=== PATIENT | male | born 1980 | race American Indian/Alaskan Native ===

== ENCOUNTER 2020-06-21 22:48 | Emergency (ER) | payer BC ==
[2020-06-21] MEDS ORDERED: levETIRAcetam 500 MG Tab ONE (23:00)
--- NOTE | 2020-06-23 11:22 | ER ---
DATE OF SERVICE: 06/21/2020 HISTORY OF PRESENT ILLNESS: A 40-year-old male who comes in with a friend who is a cement gun operator with concerns about episodes of weakness, dizziness, and episodes of passing out. This first started almost a year ago. He states that he was working at [employer] and he just felt different 1 day and he started having issues with being forgetful and having trouble doing his job. He ended up losing that job. He has been evaluated multiple times for the symptoms initially in [place] and more recently, multiple times in [facility], in fact he has been seen 3 times there in the last week in the emergency room. He has had workups on his heart that include an echocardiogram, EKG, stress test, and heart monitors. He tells me that he has had scans of his head and multiple lab tests done. They have not been able to find a cause of his symptoms. The patient states that lately, it has gotten worse. He is a single dad and he does get help from his parents, but he will have these episodes where he gets extremely tired and it is like he is on the verge of passing out or he does pass out and afterwards, he will be very sleepy and then he will have episodes where he feels clear- headed and feels almost normal. The patient is not having any problems with pain when these episodes happen. He denies any chest pain or trouble breathing, but he states he does have some visual changes at times and he is here for an additional opinion. PAST MEDICAL HISTORY: Includes: 1. Hypertension. 2. Type 2 diabetes. MEDICATIONS: The patient takes 2 different blood pressure medications and he was recently started on a blood pressure medicine. OBJECTIVE: GENERAL APPEARANCE: The patient is awake and alert. He is pleasant and talkative and is quite thorough with his history. VITAL SIGNS: Reveals blood pressure is in the 150s over 100 range. EYES: Pupils equal, round, and reactive to light. EOMs are intact without strabismus, nystagmus, or ptosis. HEAD: Normocephalic. EARS: TMs are normal. THROAT: Nares are patent. Oral mucous membranes moist. Tonsils not enlarged or injected. Pharynx not inflamed. NECK: Supple. LUNGS: Clear. CARDIAC: Heart sounds distinct. S1, S2 present. Regular rate. No murmurs. I do not hear any carotid bruits today. ABDOMEN: Soft, nontender. Bowel sounds are present. SKIN: Warm and dry. EXTREMITIES: There is no lower extremity edema noted. INITIAL WORKUP: Orthostatic blood pressures were to be attempted while the nurse was checking the patient's blood pressure in the lying down position. He developed an episode where he became almost totally unresponsive. His head was back. He was turning his head slowly from side to side. His breathing was normal. His pulse was normal. The patient did respond verbally, but was not able to focus. This lasted for 3-4 minutes, after which the patient basically slept for a few minutes. Then, he started to once again wake up, after which he became clear-headed and was acting normal. To me, this is consistent with a partial or absence seizure. There were no tremors or thrashing of the body. He would just slowly move his head from side to side while not being able to focus. LABORATORY DATA: Labs today include a CBC which shows a slightly elevated neutrophil count. Hemoglobin and WBC are normal. CMP are unremarkable. Blood sugar is 221, nonfasting. Magnesium is normal, and a TSH is normal. EKG was obtained and is also normal, showing a normal sinus rhythm. DIAGNOSIS: Partial or absence seizures. TREATMENT PLAN: I will start the patient on Keppra 500 mg b.i.d. He was given his first dose here in the emergency room. The patient is going to need further evaluation that includes a neurology consult. We will make arrangements to do this through [place]. I will be working there on . The patient will come back and see me and further arrangements will be made at that time. The patient is not to drive. He is here with his friend who will take him home, and I will give him a script for Keppra, so he can be on it for 8 days. This will be a good trial to see how much it is helping him. I strongly feel that this could have been the problem all along, but regardless, further evaluation with a neurology consult will be needed soon. CRS/MODL /[id number] VICENTE
== END 2020-06-22 00:20 | disposition home or self-care (01) ==
LOC: LB.ED 22:48
DX: R53.1 Weakness (principal); R42 Dizziness and giddiness; I10 Essential (primary) hypertension; E11.9 Type 2 diabetes mellitus without complications
CPT/HCPCS: 36415; 80053; 83735; 84443; 85025; 93005; 99285-25; A9270-GY

== ENCOUNTER 2020-06-26 22:59 | Observation (INO) | payer BC, MEDICAID, OTHER ==
[2020-06-27] MEDS ORDERED: Sodium Chloride 0.9% 10 ML Syringe FLUSH PRN (00:58)
[2020-06-27] MEDS ORDERED: Sodium Chloride 0.9% 1,000 ML IV ONE (00:59)
[2020-06-27] MEDS ORDERED: Glucagon,Human Recombinant 1 MG Vial IM PRN (01:24)
[2020-06-27] MEDS ORDERED: 50% Dextrose in Water 50 ML Syringe IVPUSH PRN (01:24)
--- NOTE | 2020-06-27 03:15 | HP ---
REASON FOR EMERGENCY ROOM VISIT: Weakness. HISTORY: This 40-year-old man was brought to the emergency room by his parents because of extreme weakness. He has a relatively complicated history, particularly over the past year. For the past 5 days, he has made 4 visits to providers in clinics and hospitals with a constellation of symptoms including episodes of impending doom, which seem to wax and wane along with feelings of panic. He has episodes of extreme weakness where it is hard for him even to walk across the room. He states he can only walk approximately 5 minutes. He has had coughing episodes and some episodes of chest pain and complains of a great deal of stomach gas. He has been coughing and has not had any fever, but he does get chills. He had an episode of chest pain this evening that was also accompanying his episode of extreme weakness. He is a type 2 diabetic who was diagnosed 3 years ago. His H1C's have tended to run between 6 and 9. He had been managed on metformin, but because of GI intolerance, had to be switched over to insulin approximately 4 days ago. His history dates back approximately a year when he had moved to the area and was working on the [employer]. He has been under a great deal of pressure as he is a single parent of 3 children. He states that while he was working for [employer], he had episodes where he was feeling very clumsy and dizzy and forgetful, and interspersed with these episodes he would have times when he had a difficult time reading and could not stand. Because of this he eventually lost his job approximately a month later due to safety concerns. In August of last year he had a fairly extensive neurologic workup in [place]. This included a CT scan, an MRI, and a workup for multiple sclerosis under the bio- neurologist in [place]. All of this was negative. 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 He states that he was quite satisfied with his job and enjoys it a great deal. Over the course of the summer and this fall, he has had periods where he feels like he is "in a fog," these last from a few hours up to weeks at a time. He has had questionable syncopal episodes over the past few months as well. Since his diabetes was diagnosed, it sounds that his blood sugars have been varied quite wildly, ranging between 160 and 300, but he has never really had blood sugars in the normal range. He states that when his blood sugar gets below 160, he has foggy-type symptoms and when he gets over 300, he gets symptoms that sound more consistent with hypoglycemia. One month ago, he was seen with episodes of pleuritic chest pain and he was placed on antibiotics for this. Those symptoms lasted about 2 weeks and resolved. He has been worked up in the past for chest pain and this has included echocardiograms, EKGs, a stress test, and heart monitors and these have all been negative according to the patient. Over the past 5 days, he has had more sleepiness and tiredness and more profound weakness. He did have an episode of chest pain tonight. This evening he was so weak he felt like he could barely move his arms or legs. He has had coughing as mentioned above and maybe some chills, but no fever. He denies any chest pain at this time. He has not had any vomiting or diarrhea. He denies any urinary symptoms. He was seen here on 06/22/2020 by JAROD Cortés, who felt that he might have been experiencing absence seizures. He was started on Keppra and arrangements were seen for him to follow up with a neurologist. Subsequent to this, his Keppra was discontinued. His primary care provider is Dr. Yates in [place] and the patient states he is very pleased with his care so far. MEDICATIONS: Reviewed. Please see electronic medical record. FAMILY HISTORY: He does have a history of coronary artery disease in a brother who was 40 years old when he had a myocardial infarction. REVIEW OF SYSTEMS: Pertinent positives and negatives as listed in the HPI. ALLERGIES: NONE TO MEDICATIONS. PHYSICAL EXAMINATION: GENERAL: At this time, he is in the emergency department. He is alert and pleasant, does not appear to be in any acute distress. VITAL SIGNS: He is afebrile, heart rate is 71, blood pressure 147/91, respirations 18, O2 sats 96%. HEENT: Head is normocephalic. Pupils are round and equal and react equally to light. There is no scleral icterus or conjunctivitis. Oropharynx is normal. NECK: Supple. No JVD. No bruits. CHEST: Clear to auscultation with good air exchange and no wheezes, rhonchi, or rales. CARDIAC: Regular rate without murmur. ABDOMEN: Soft and nontender. There is no hepatosplenomegaly. No palpable masses. There is no CVA tenderness. EXTREMITIES: Normal pulses. No edema. Toes, there is no cyanosis. Straight leg raising is negative. NEUROLOGIC: Cranial nerves 2 through 12 intact. Deep tendon reflexes are brisk, but symmetrical bilaterally. Muscle strength is decreased, but symmetrical bilaterally in the upper and lower extremities. Sensory examination is normal to crude touch. LABORATORY DATA: His CBC is normal. He has no anemia or leukocytosis. His CMP is remarkable only in that his blood glucose is 210. His POC glucose just prior to this on arrival in the ER was 180. His lactic acid is normal at 1.1. His C-reactive protein is elevated at 8.5. His troponin-1 is normal at less than 0.017. Magnesium level is pending at this time. D-dimer was normal at 137. SARS-Cov-2 RNA rapid CHARIS was negative. A 12-lead EKG showed normal sinus rhythm with no acute changes. Chest x-ray shows no active pulmonary disease. IMPRESSION: 1. Profound weakness as described above. Uncertain etiology. 2. Poorly controlled type 2 diabetes. 3. Neurologic symptoms of fogginess, forgetfulness, and clumsiness as described above. PLAN: Because of his profound weakness when he appeared to the emergency room, because of the complexity of his symptoms, I think we will go ahead and admit him. We will not place him on his regular insulin, but get him on a sliding scale and see if we can get a better idea as to what is going on there. The main thing would be to observe him and try to get a handle on all of this constellation of symptoms. It may be that he does indeed need to be seen by neurologist for what could be some sort of seizure activity, could be that he needs to have yet another CT scan to rule out something such as a cerebellar infarct, etc. We will admit him for observation at this time rather than send him home. All questions were answered. The patient understands and agrees with this plan. ROCIO/MADDY VICENTE
--- NOTE | 2020-06-27 08:44 | CR ---
Date of Service: 06/27/20 Clinical Data: SOB AP CHEST: No priors. The heart size is normal. The lungs are clear. No pneumothorax. No pleural effusions. No evidence of acute intrathoracic disease. [id number] [facility]
[2020-06-27] MEDS: Insulin Regular, Human 100 Units/ML 3 ML Vial SUBCUT SCH ×4 (09:09→21:25)
[2020-06-27] MEDS: atorvaSTATin 40 MG Tab PO SCH (21:30)
[2020-06-27] MEDS ORDERED: Losartan 50 MG Tab PO SCH (22:00)
[2020-06-28] MEDS: Insulin Regular, Human 100 Units/ML 3 ML Vial SUBCUT SCH ×4 (08:02→21:32)
[2020-06-28] MEDS ORDERED: Fenofibrate,Micronized 67 MG Cap PO SCH (10:00)
[2020-06-28] MEDS ORDERED: Acetaminophen 325 MG Tab PO PRN (11:58)
[2020-06-28] MEDS: Fenofibrate,Micronized 67 MG Cap PO SCH (15:21)
[2020-06-28] MEDS: Losartan 50 MG Tab PO SCH (21:40)
[2020-06-28] MEDS: atorvaSTATin 40 MG Tab PO SCH (21:40)
[2020-06-29] MEDS: Insulin Regular, Human 100 Units/ML 3 ML Vial SUBCUT SCH (08:00)
[2020-06-29] MEDS: Fenofibrate,Micronized 67 MG Cap PO SCH (08:10)
[2020-06-29] MEDS: Losartan 50 MG Tab PO SCH (08:12)
[2020-06-29 09:12] LABS: SARS COV-2 IGG AB Negative (Negative)
--- NOTE | 2020-06-29 10:26 | PCM.PN ---
- General Info Date of Service: 06/28/20 Subjective Update: Patient stable and improved. He has a had fluctuations of his BP and glucose. He notes improved diet and decreased feeling of being extremely hungry and still losing weight. Functional Status: Reports: Tolerating Diet, Ambulating, Urinating (decreased urination frequency) - Review of Systems HEENT: Reports: No Symptoms Pulmonary: Reports: No Symptoms Cardiovascular: Reports: No Symptoms Gastrointestinal: Reports: No Symptoms Genitourinary: Reports: No Symptoms Musculoskeletal: Reports: No Symptoms Skin: Reports: No Symptoms Psychiatric: Reports: No Symptoms - Patient Data Vitals - Most Recent: Last Vital Signs Temp 36.4 C 06/29/20 04:00 Pulse 84 06/29/20 04:00 Resp 18 06/29/20 04:00 BP 109/65 06/29/20 04:00 Pulse Ox 96 06/29/20 04:00 Weight - Most Recent: 88.904 kg Lab Results Last 24 Hours: Laboratory Results - last 24 hr 06/27/20 06/27/20 06/27/20 Range/Units 01:00 10:08 10:10 POC Glucose (74-110) mg/dL Vitamin B12 874 (232-1245) pg/mL Prolactin 15.0 (4.0-15.2) ng/mL Cortisol 7.5 (.) ug/dL RPR (NonRea<1:1) SARS-CoV-2 IgG(CLIA) (Negative) 06/27/20 06/27/20 06/28/20 Range/Units 10:10 10:10 10:41 POC Glucose 174 H (74-110) mg/dL Vitamin B12 (232-1245) pg/mL Prolactin (4.0-15.2) ng/mL Cortisol (.) ug/dL RPR Non reactive (NonRea<1:1) SARS-CoV-2 IgG(CLIA) Negative (Negative) 06/28/20 06/28/20 06/29/20 Range/Units 15:47 20:31 03:08 POC Glucose 126 H 135 H 157 H (74-110) mg/dL Vitamin B12 (232-1245) pg/mL Prolactin (4.0-15.2) ng/mL Cortisol (.) ug/dL RPR (NonRea<1:1) SARS-CoV-2 IgG(CLIA) (Negative) 06/29/20 06/29/20 06/29/20 Range/Units 05:09 06:41 08:27 POC Glucose 170 H 215 H 178 H (74-110) mg/dL Vitamin B12 (232-1245) pg/mL Prolactin (4.0-15.2) ng/mL Cortisol (.) ug/dL RPR (NonRea<1:1) SARS-CoV-2 IgG(CLIA) (Negative) Med Orders - Current: Current Medications Acetaminophen (Tylenol) 650 mg PO Q6H PRN PRN Reason: Pain (moderate 4-6) Atorvastatin Calcium (Lipitor) 40 mg PO BEDTIME [facility] Last Admin: 06/28/20 21:40 Dose: 40 mg Documented by: Dextrose/Water (Dextrose 50% In Water) 50 ml IVPUSH ASDIRECTED PRN PRN Reason: Hypoglycemia Fenofibrate (Fenofibrate) 67 mg PO DAILY [facility] Last Admin: 06/29/20 08:10 Dose: 67 mg Documented by: Glucagon (Glucagen) 1 mg IM ASDIRECTED PRN PRN Reason: Hypoglycemia Insulin Human Regular (Humulin R) 0 unit SUBCUT QIDACANDBED [facility]; Protocol Last Admin: 06/29/20 08:00 Dose: 4 units Documented by: Losartan Potassium (Cozaar) 50 mg PO DAILY [facility] Sodium Chloride (Saline Flush) 10 ml FLUSH ASDIRECTED PRN PRN Reason: Keep Vein Open Discontinued Medications Fenofibrate (Fenofibrate) 67 mg PO DAILY [facility] Last Admin: 06/28/20 13:10 Dose: Not Given Documented by: Sodium Chloride (Normal Saline) 1,000 mls @ 999 mls/hr IV .BOLUS ONE Stop: 06/27/20 01:59 Last Admin: 06/27/20 07:52 Dose: Not Given Documented by: Losartan Potassium (Cozaar) 50 mg PO DAILY [facility] Last Admin: 06/27/20 21:30 Dose: 50 mg Documented by: Losartan Potassium (Cozaar) 50 mg PO DAILY [facility] Last Admin: 06/29/20 08:12 Dose: Not Given Documented by: - Exam General: Alert, Oriented, Cooperative, No Acute Distress HEENT: Pupils Equal, Pupils Reactive, EOMI Lungs: Clear to Auscultation, Normal Respiratory Effort Cardiovascular: Regular Rate, Regular Rhythm GI/Abdominal Exam: Normal Bowel Sounds, Soft, Non-Tender Extremities: Normal Inspection Sepsis Event Note - Evaluation Sepsis Screening Result: No Definite Risk - Focused Exam Vital Signs: Vital Signs Temp Pulse Resp BP Pulse Ox 06/29/20 04:00 36.4 C 84 18 109/65 96 - Problem List & Annotations (1) Weakness SNOMED Code(s): 31293627 Code(s): R53.1 - WEAKNESS Status: Acute Priority: High Current Visit: Yes (2) Diabetes SNOMED Code(s): 63573128 Code(s): E11.9 - TYPE 2 DIABETES MELLITUS WITHOUT COMPLICATIONS Status: Chronic Priority: High Current Visit: Yes (3) Altered mental status SNOMED Code(s): 836402236 Code(s): R41.82 - ALTERED MENTAL STATUS, UNSPECIFIED Status: Acute Priority: High Current Visit: Yes Qualifiers: Altered mental status type: delirium Qualified Code(s): R41.0 - Disorientation, unspecified - Problem List Review Problem List Initiated/Reviewed/Updated: Yes - My Orders Last 24 Hours: My Active Orders 06/28/20 13:15 Fenofibrate,Micronized [Fenofibrate] 67 mg PO DAILY 06/29/20 10:17 Ready for Discharge [RC] PER UNIT ROUTINE 06/29/20 20:00 Losartan [Cozaar] 50 mg PO DAILY - Plan Plan:: We will monitor continued weakness today and continue BP and glucose management at this time.
--- NOTE | 2020-06-29 10:33 | PCM.DCSUM1 ---
Discharge Summary - Discharge Data Discharge Date: 06/29/20 Discharge Disposition: Home, Self-Care 01 Condition: Fair - Referral to Home Health Primary Care Physician: PCP None - Discharge Diagnosis/Problem(s) (1) Weakness SNOMED Code(s): 16423798 ICD Code: R53.1 - WEAKNESS Status: Acute Priority: High Current Visit: Yes (2) Diabetes SNOMED Code(s): 41177337 ICD Code: E11.9 - TYPE 2 DIABETES MELLITUS WITHOUT COMPLICATIONS Status: Chronic Priority: High Current Visit: Yes (3) Altered mental status SNOMED Code(s): 404492505 ICD Code: R41.82 - ALTERED MENTAL STATUS, UNSPECIFIED Status: Acute Priority: High Current Visit: Yes Qualifiers: Altered mental status type: delirium Qualified Code(s): R41.0 - Disorientation, unspecified - Patient Summary/Data Consults: Consultations 06/27/20 19:34 Consult to Diabetic Nurse Specialist [CONS] Routine Comment: Physician Instructions: Reason for Consult: Newly dx Diabetic - Patient Instructions Diet: Diabetic Diet Activity: As Tolerated Driving: May Drive Today - Discharge Plan Prescriptions/Med Rec: Losartan [Cozaar] 25 mg PO DAILY #30 Losartan [Cozaar] 25 mg PO DAILY #30 tablet Lancets [Glucocom Lancets] 1 each MC QID #100 each Blood Sugar Diagnostic [Glucose Test Strip] 1 each MC QID #100 strip Insulin Glarg,Human.Rec.Analog [Lantus Solostar] 8 unit SUBCUT BEDTIME #3 pen Insulin Aspart [NovoLOG] 5 unit SQ TIDMEALS #3 pen Home Medications: Home Meds Fenofibrate Nanocrystallized [Fenofibrate] 48 mg PO DAILY 06/27/20 [History] atorvaSTATin [Lipitor] 40 mg PO BEDTIME 06/27/20 [History] Acetaminophen [Tylenol] 650 mg PO Q6H PRN tablet 06/29/20 [Rx] Blood Sugar Diagnostic [Glucose Test Strip] 1 each MC QID #100 strip 06/29/20 [Rx] Fenofibrate,Micronized [Fenofibrate] 67 mg PO DAILY cap 06/29/20 [Rx] Insulin Aspart [NovoLOG] 5 unit SQ TIDMEALS #3 pen 06/29/20 [Rx] Insulin Glarg,Human.Rec.Analog [Lantus Solostar] 8 unit SUBCUT BEDTIME #3 pen 06/29/20 [Rx] Lancets [Glucocom Lancets] 1 each QID #100 each 06/29/20 [Rx] Losartan [Cozaar] 25 mg PO DAILY #30 06/29/20 [Rx] Losartan [Cozaar] 25 mg PO DAILY #30 tablet 06/29/20 [Rx] atorvaSTATin [Lipitor] 40 mg PO BEDTIME tablet 06/29/20 [Rx] Patient Handouts: Insulin Treatment for Diabetes Mellitus, Carbohydrate Counting for Diabetes Mellitus, Pediatric, Diabetes Mellitus and Foot Care, Tips for Eating Away From Home If You Have Diabetes, Diabetes Mellitus and Sick Day Management Forms: ED Department Discharge Referrals: PCP,None [Primary Care Provider] - - Discharge Summary/Plan Comment DC Time >30 min.: Yes Discharge Summary/Plan Comment: Patient Diabetics education done. Patient to f/u with PCP this week for further DM management and care. Discussed f/u if symptoms return and f/u recent labs for results. Results to be sent to Dr. Yates as well. Patient agrees to follow up if any concerns or issues. - General Info Date of Service: 06/29/20 Subjective Update: Patient notes most symptoms resolved. He remains slightly weak and concerned about his glucose, BP, weakness and mental concerns. Functional Status: Reports: Tolerating Diet - Review of Systems General: Reports: Weakness HEENT: Reports: No Symptoms Pulmonary: Reports: No Symptoms Cardiovascular: Reports: No Symptoms Gastrointestinal: Reports: No Symptoms Genitourinary: Reports: No Symptoms Musculoskeletal: Reports: No Symptoms Skin: Reports: No Symptoms Neurological: Reports: Weakness - Patient Data Vitals - Most Recent: Last Vital Signs Temp 36.4 C 06/29/20 04:00 Pulse 84 06/29/20 04:00 Resp 18 06/29/20 04:00 BP 109/65 06/29/20 04:00 Pulse Ox 96 06/29/20 04:00 Weight - Most Recent: 88.904 kg Lab Results - Last 24 hrs: Laboratory Results - last 24 hr 06/27/20 06/27/20 06/27/20 Range/Units 01:00 10:08 10:10 POC Glucose (74-110) mg/dL Vitamin B12 874 (232-1245) pg/mL Prolactin 15.0 (4.0-15.2) ng/mL Cortisol 7.5 (.) ug/dL RPR (NonRea<1:1) SARS-CoV-2 IgG(CLIA) (Negative) 06/27/20 06/27/20 06/28/20 Range/Units 10:10 10:10 10:41 POC Glucose 174 H (74-110) mg/dL Vitamin B12 (232-1245) pg/mL Prolactin (4.0-15.2) ng/mL Cortisol (.) ug/dL RPR Non reactive (NonRea<1:1) SARS-CoV-2 IgG(CLIA) Negative (Negative) 06/28/20 06/28/20 06/29/20 Range/Units 15:47 20:31 03:08 POC Glucose 126 H 135 H 157 H (74-110) mg/dL Vitamin B12 (232-1245) pg/mL Prolactin (4.0-15.2) ng/mL Cortisol (.) ug/dL RPR (NonRea<1:1) SARS-CoV-2 IgG(CLIA) (Negative) 06/29/20 06/29/20 06/29/20 Range/Units 05:09 06:41 08:27 POC Glucose 170 H 215 H 178 H (74-110) mg/dL Vitamin B12 (232-1245) pg/mL Prolactin (4.0-15.2) ng/mL Cortisol (.) ug/dL RPR (NonRea<1:1) SARS-CoV-2 IgG(CLIA) (Negative) Med Orders - Current: Current Medications Acetaminophen (Tylenol) 650 mg PO Q6H PRN PRN Reason: Pain (moderate 4-6) Atorvastatin Calcium (Lipitor) 40 mg PO BEDTIME [facility] Last Admin: 06/28/20 21:40 Dose: 40 mg Documented by: Dextrose/Water (Dextrose 50% In Water) 50 ml IVPUSH ASDIRECTED PRN PRN Reason: Hypoglycemia Fenofibrate (Fenofibrate) 67 mg PO DAILY [facility] Last Admin: 06/29/20 08:10 Dose: 67 mg Documented by: Glucagon (Glucagen) 1 mg IM ASDIRECTED PRN PRN Reason: Hypoglycemia Insulin Human Regular (Humulin R) 0 unit SUBCUT QIDACANDBED [facility]; Protocol Last Admin: 06/29/20 08:00 Dose: 4 units Documented by: Losartan Potassium (Cozaar) 50 mg PO DAILY [facility] Sodium Chloride (Saline Flush) 10 ml FLUSH ASDIRECTED PRN PRN Reason: Keep Vein Open Discontinued Medications Fenofibrate (Fenofibrate) 67 mg PO DAILY [facility] Last Admin: 06/28/20 13:10 Dose: Not Given Documented by: Sodium Chloride (Normal Saline) 1,000 mls @ 999 mls/hr IV .BOLUS ONE Stop: 06/27/20 01:59 Last Admin: 06/27/20 07:52 Dose: Not Given Documented by: Losartan Potassium (Cozaar) 50 mg PO DAILY [facility] Last Admin: 06/27/20 21:30 Dose: 50 mg Documented by: Losartan Potassium (Cozaar) 50 mg PO DAILY [facility] Last Admin: 06/29/20 08:12 Dose: Not Given Documented by: - Exam General: Reports: Alert, Oriented, Cooperative HEENT: Reports: Pupils Equal, Pupils Reactive Neck: Reports: Supple Lungs: Reports: Clear to Auscultation, Normal Respiratory Effort Cardiovascular: Reports: Regular Rate, Regular Rhythm GI/Abdominal Exam: Normal Bowel Sounds, Soft, Non-Tender, No Abnormal Bruit Back Exam: Reports: Normal Inspection Extremities: Normal Inspection
[2020-06-29] MEDS ORDERED: Losartan 50 MG Tab PO SCH (20:00)
[2020-06-30 00:07] LABS: ANA DIRECT Negative (Negative)
[2020-06-30 12:11] LABS: LYME IGG/IGM AB <0.91 ISR (0.00-0.90)
[2020-06-30 21:10] LABS: SARS COV-2 IGM AB Negative (Negative)
== END 2020-06-29 10:23 | disposition home or self-care (01) ==
LOC: LB.ED 22:59 → LB.MS 06-27 03:00 → UNDOADMOB 06-27 03:00 → LB.MS 06-27 07:55
PROVIDERS: ADMIT Surgery; ATTEND Surgery
DX: R53.1 Weakness (principal); E11.9 Type 2 diabetes mellitus without complications; R41.82 Altered mental status, unspecified; Z79.899 Other long term (current) drug therapy; Z20.822 Contact with and (suspected) exposure to COVID-19; Z79.84 Long term (current) use of oral hypoglycemic drugs
CPT/HCPCS: 36415; 71045; 80053; 80061; 82533; 82607; 82652; 82962; 83605; 83615; 83735; 84146; 84443; 84484; 84630; 85025; 85379; 86038; 86140; 86593; 86618; 86769; 87635; 93005; 96372; 99285; A9270; G0378; J1815; 99219; U0002

== ENCOUNTER 2020-12-15 12:09 | Emergency (ER) | payer BC, MEDICAID ==
[2020-12-15 13:27] LABS: HEMOGLOBIN A1C 7.2 % (< 5.7)
[2020-12-15 14:06] VITALS: BP 128/72; PULSE 72
[2020-12-15] MEDS ORDERED: methylPREDNISolone Sodium Succinate 125 MG/2 ML SDV IM ONE (15:41)
--- NOTE | 2020-12-15 15:43 | EDM.PDOC ---
ED HPI GENERAL MEDICAL PROBLEM - General Chief Complaint: Syncope Stated Complaint: SPINE PAIN Time Seen by Provider: 12/15/20 12:30 Source of Information: Reports: Patient, Old Records History Limitations: Reports: No Limitations - History of Present Illness INITIAL COMMENTS - FREE TEXT/NARRATIVE: patient presented to the ER with progressive b/l LEs weakness on/off for the las t several weeks. He was having an MRI of C spine, as well as, thoracic and lumbar for the same reason per his PCP orders. But during MRI he felt weak- for further evaluation. no incontinence. no trauma. Mid-Sternal Pain Score (Numeric/FACES): 3 - Related Data Allergies Allergy/AdvReac Type Severity Reaction Status Date / Time No Known Drug Allergies Allergy none Verified 12/15/20 12:33 Home Meds: Home Meds Fenofibrate Nanocrystallized [Fenofibrate] 48 mg PO DAILY 06/27/20 [History] Acetaminophen [Tylenol] 650 mg PO Q6H PRN tablet 06/29/20 [Rx] Blood Sugar Diagnostic [Glucose Test Strip] 1 each QID #100 strip 06/29/20 [Rx] Fenofibrate,Micronized [Fenofibrate] 67 mg PO DAILY cap 06/29/20 [Rx] Insulin Aspart [NovoLOG] 5 unit SQ TIDMEALS #3 pen 06/29/20 [Rx] Insulin Glarg,Human.Rec.Analog [Lantus Solostar] 8 unit SUBCUT BEDTIME #3 pen 06/29/20 [Rx] Lancets [Glucocom Lancets] 1 each QID #100 each 06/29/20 [Rx] Losartan [Cozaar] 25 mg PO DAILY #30 tablet 06/29/20 [Rx] atorvaSTATin [Lipitor] 40 mg PO BEDTIME tablet 06/29/20 [Rx] methylPREDNISolone [Medrol Dose Pack] 84 mg PO DAILY #1 dospk 12/15/20 [Rx] Cyclobenzaprine [Flexeril] 10 mg PO BEDTIME 12/18/20 [History] bisoproloL fumarate [Bisoprolol Fumarate] 5 mg PO 12/18/20 [History] metFORMIN [Glucophage XR] 500 mg PO BIDMEALS 12/18/20 [History] Past Medical History Cardiovascular History: Reports: High Cholesterol, Hypertension Other Neuro History: dizziness and passing out Endocrine/Metabolic History: Reports: Diabetes, Type II Hematologic History: Reports: None - Infectious Disease History Infectious Disease History: Reports: Chicken Pox, Influenza - Past Surgical History Cardiovascular Surgical History: Reports: None Endocrine Surgical History: Reports: Other (See Below) Other Endocrine Surgeries/Procedures: thyroid problems Neurological Surgical History: Reports: None Social & Family History - Caffeine Use Caffeine Use: Reports: None - Recreational Drug Use Recreational Drug Use: No ED ROS GENERAL - Review of Systems Review Of Systems: See Below Constitutional: Reports: Malaise, Fatigue HEENT: Reports: No Symptoms Respiratory: Reports: No Symptoms Cardiovascular: Reports: No Symptoms Endocrine: Reports: No Symptoms GI/Abdominal: Reports: No Symptoms Musculoskeletal: Reports: Neck Pain, Back Pain Skin: Reports: No Symptoms Neurological: Reports: Headache, Difficulty Walking Psychiatric: Reports: No Symptoms ED EXAM, NEURO - Physical Exam Exam: See Below Exam Limited By: No Limitations General Appearance: Alert, WD/WN, No Apparent Distress Eye Exam: Bilateral Eye: EOMI Head Exam: Atraumatic Neck: Supple Respiratory/Chest: No Respiratory Distress, Lungs Clear Cardiovascular: Normal Peripheral Pulses, Regular Rate, Rhythm GI/Abdominal: Normal Bowel Sounds, Soft, Non-Tender Neurological: Alert, Normal Mood/Affect, Normal Dorsiflexion, No Motor/Sensory Deficits, Oriented x 3 Extremities: Normal Inspection Course - Vital Signs Last Recorded V/S: Last Vital Signs Temp 36.1 C 12/15/20 13:54 Pulse 72 12/15/20 14:05 Resp 16 12/15/20 14:05 BP 128/72 12/15/20 14:05 Pulse Ox 98 12/15/20 14:05 - Orders/Labs/Meds Labs: Laboratory Tests 12/15/20 12/15/20 12/15/20 Range/Units 13:05 13:05 13:05 WBC 6.1 D (4.0-11.0) K/uL RBC 5.08 (4.50-6.50) M/uL Hgb 14.7 (13.0-18.0) g/dL Hct 42.7 (40.0-54.0) % MCV 84 (76-96) fL MCH 28.9 (27.0-32.0) pg MCHC 34.4 (31.0-35.0) g/dL RDW 12.8 (11.0-16.0) % Plt Count 252 (150-400) K/uL MPV 11.7 H (6.0-10.0) fL ESR 2 (0-15) mm/hr Sodium 139 (136-145) mmol/L Potassium 3.8 (3.5-5.1) mmol/L Chloride 102 (98-107) mmol/L Carbon Dioxide 26.2 (21.0-32.0) mmol/L Anion Gap 14.6 (5.0-15.0) mmol/L BUN 15 D (8-26) mg/dL Creatinine 1.00 (0.70-1.30) mg/dL Est Cr Clr Drug Dosing TNP Estimated GFR (MDRD) > 60 (>60) MLS/MIN BUN/Creatinine Ratio 15.0 (6-25) Glucose 289 H D (74-100) mg/dL POC Glucose (74-110) mg/dL Hemoglobin A1c (< 5.7) % Calcium 9.0 (8.5-10.1) mg/dL Phosphorus (2.5-4.9) mg/dL Magnesium (1.8-2.4) mg/dL Creatine Kinase (21-232) U/L C-Reactive Protein (0.0-3.0) mg/L 12/15/20 12/15/20 12/15/20 Range/Units 13:05 13:05 13:06 WBC (4.0-11.0) K/uL RBC (4.50-6.50) M/uL Hgb (13.0-18.0) g/dL Hct (40.0-54.0) % MCV (76-96) fL MCH (27.0-32.0) pg MCHC (31.0-35.0) g/dL RDW (11.0-16.0) % Plt Count (150-400) K/uL MPV (6.0-10.0) fL ESR (0-15) mm/hr Sodium (136-145) mmol/L Potassium (3.5-5.1) mmol/L Chloride (98-107) mmol/L Carbon Dioxide (21.0-32.0) mmol/L Anion Gap (5.0-15.0) mmol/L BUN (8-26) mg/dL Creatinine (0.70-1.30) mg/dL Est Cr Clr Drug Dosing Estimated GFR (MDRD) (>60) MLS/MIN BUN/Creatinine Ratio (6-25) Glucose (74-100) mg/dL POC Glucose (74-110) mg/dL Hemoglobin A1c 7.2 H (< 5.7) % Calcium (8.5-10.1) mg/dL Phosphorus 2.8 (2.5-4.9) mg/dL Magnesium 2.0 (1.8-2.4) mg/dL Creatine Kinase (21-232) U/L C-Reactive Protein 1.6 (0.0-3.0) mg/L 12/15/20 12/15/20 12/18/20 Range/Units 15:02 15:23 17:34 WBC 7.8 D (4.0-11.0) K/uL RBC 5.36 (4.50-6.50) M/uL Hgb 15.5 (13.0-18.0) g/dL Hct 44.9 (40.0-54.0) % MCV 84 (76-96) fL MCH 28.9 (27.0-32.0) pg MCHC 34.5 (31.0-35.0) g/dL RDW 12.4 (11.0-16.0) % Plt Count 254 (150-400) K/uL MPV 11.1 H (6.0-10.0) fL ESR (0-15) mm/hr Sodium (136-145) mmol/L Potassium (3.5-5.1) mmol/L Chloride (98-107) mmol/L Carbon Dioxide (21.0-32.0) mmol/L Anion Gap (5.0-15.0) mmol/L BUN (8-26) mg/dL Creatinine (0.70-1.30) mg/dL Est Cr Clr Drug Dosing Estimated GFR (MDRD) (>60) MLS/MIN BUN/Creatinine Ratio (6-25) Glucose (74-100) mg/dL POC Glucose 233 H (74-110) mg/dL Hemoglobin A1c (< 5.7) % Calcium (8.5-10.1) mg/dL Phosphorus (2.5-4.9) mg/dL Magnesium (1.8-2.4) mg/dL Creatine Kinase 352 H (21-232) U/L C-Reactive Protein (0.0-3.0) mg/L 12/18/20 Range/Units 17:34 WBC (4.0-11.0) K/uL RBC (4.50-6.50) M/uL Hgb (13.0-18.0) g/dL Hct (40.0-54.0) % MCV (76-96) fL MCH (27.0-32.0) pg MCHC (31.0-35.0) g/dL RDW (11.0-16.0) % Plt Count (150-400) K/uL MPV (6.0-10.0) fL ESR (0-15) mm/hr Sodium 140 (136-145) mmol/L Potassium 3.7 (3.5-5.1) mmol/L Chloride 102 (98-107) mmol/L Carbon Dioxide 26.6 (21.0-32.0) mmol/L Anion Gap 15.1 H (5.0-15.0) mmol/L BUN 13 (8-26) mg/dL Creatinine 1.04 (0.70-1.30) mg/dL Est Cr Clr Drug Dosing TNP Estimated GFR (MDRD) > 60 (>60) MLS/MIN BUN/Creatinine Ratio 12.5 (6-25) Glucose 179 H D (74-100) mg/dL POC Glucose (74-110) mg/dL Hemoglobin A1c (< 5.7) % Calcium 9.2 (8.5-10.1) mg/dL Phosphorus (2.5-4.9) mg/dL Magnesium (1.8-2.4) mg/dL Creatine Kinase (21-232) U/L C-Reactive Protein (0.0-3.0) mg/L Meds: Medications Discontinued Medications Generic Name Dose Route Start Last Admin Trade Name Freq PRN Reason Stop Dose Admin Methylprednisolone Sodium Succinate 125 mg 12/15/20 15:41 12/15/20 15:52 Methylprednisolone Sodium Succinate 125 Mg/2 Ml Sdv IM 12/15/20 15:42 125 mg ONETIME ONE Administration Methylprednisolone Sodium Succinate Confirm 12/15/20 15:59 12/15/20 15:55 Methylprednisolone Sodium Succinate 125 Mg/2 Ml Sdv Administered 12/15/20 16:00 Not Given Dose 125 mg .ROUTE .STK-MED ONE - Re-Assessments/Exams Free Text/Narrative Re-Assessment/Exam: patient had a recent MRI head that was normal multiple negative workups for auto-immune disease, including Lyme. He reports his symptoms are intermittent for which he is fine in between. He symptoms last from 15 to 60 min and resolve when he cracks his back at certain area. 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, Muscle weakness (generalized) - Discharge Information *PRESCRIPTION DRUG MONITORING PROGRAM REVIEWED*: Not Applicable *COPY OF PRESCRIPTION DRUG MONITORING REPORT IN PATIENT [facility]: Not Applicable Prescriptions: methylPREDNISolone [Medrol Dose Pack] 84 mg PO DAILY #1 dospk Referrals: PCP,None [Primary Care Provider] - Forms: ED Department Discharge Additional Instructions: - follow up with a PCP in 1-2 weeks - recommend to call next week to check on your blood tests - return to the ER if any concerns or worsening of symptoms - take cortisone as prescribed - it might increase your blood sugar levels temporarily Sepsis Event Note (ED) - Evaluation Sepsis Screening Result: No Definite Risk - Problem List & Annotations (1) Muscle weakness (generalized) SNOMED Code(s): 98467605, 30907706 Code(s): M62.81 - MUSCLE WEAKNESS (GENERALIZED) Status: Acute Priority: Medium (2) Weakness SNOMED Code(s): 35577679 Code(s): R53.1 - WEAKNESS Status: Acute Priority: High - Problem List Review Problem List Initiated/Reviewed/Updated: Yes - Assessment/Plan Plan: - follow up with a PCP in 1-2 weeks - recommend to call next week to check on your blood tests - return to the ER if any concerns or worsening of symptoms - take cortisone as prescribed - it might increase your blood sugar levels temporarily
[2020-12-15] MEDS ORDERED: methylPREDNISolone Sodium Succinate 125 MG/2 ML SDV ONE (15:59)
== END 2020-12-15 16:21 | disposition home or self-care (01) ==
LOC: LB.ED 12:09
DX: G95.29 Other cord compression (principal); E78.00 Pure hypercholesterolemia, unspecified; I10 Essential (primary) hypertension; E11.9 Type 2 diabetes mellitus without complications; Z79.4 Long term (current) use of insulin; Z79.899 Other long term (current) drug therapy
CPT/HCPCS: 36415; 80048; 82550; 82947; 83036; 83519; 83735; 84100; 85027; 85651; 86140; 87476; 96372; 99284; J2930

== ENCOUNTER 2020-12-18 17:35 | Emergency (ER) | payer MEDICAID ==
[2020-12-18] MEDS ORDERED: Sodium Chloride 0.9% 10 ML Syringe FLUSH PRN (17:44)
--- NOTE | 2020-12-18 17:51 | EDM.PDOC ---
ED HPI GENERAL MEDICAL PROBLEM - General Chief Complaint: General Stated Complaint: general Time Seen by Provider: 12/18/20 17:45 Source of Information: Reports: Patient, Family History Limitations: Reports: No Limitations - History of Present Illness INITIAL COMMENTS - FREE TEXT/NARRATIVE: patient presented to the ER with weakness of b/l Upper and lower extremities that is progressive. Symptoms started several weeks ago, but they been getting more frequent - 3-4 times daily - sudden weakness in b/l Upper and LEs. Unable to stand up and walk around - need help getting around. mild tingling and numbness. No h/o trauma - but he lifts weights at the gym. h/o T1DM on insulin. Had MRI brain at [facility] ( OSH ) last week that was normal . Had a recent MRI 2 days ago for cervical spine, Thoracic and lumbar. This showed multiple levels of disc prolapse with compression of C6-C7 that displaces the spinal cord, T8-T9 disc protrusion and L5-S1 that producing ventral effacement on the dural sac and S1 nerve root. Patient reports that symptoms lasts between 30 min to 1 hrs -- and has recently been getting longer and worse. Have not been seen at a chiropractor or physical therapy. Left Upper Posterior Back Pain Score (Numeric/FACES): 8 - Related Data Allergies Allergy/AdvReac Type Severity Reaction Status Date / Time No Known Drug Allergies Allergy none Verified 12/15/20 12:33 Home Meds: Home Meds Fenofibrate Nanocrystallized [Fenofibrate] 48 mg PO DAILY 06/27/20 [History] Acetaminophen [Tylenol] 650 mg PO Q6H PRN tablet 06/29/20 [Rx] Blood Sugar Diagnostic [Glucose Test Strip] 1 each QID #100 strip 06/29/20 [Rx] Fenofibrate,Micronized [Fenofibrate] 67 mg PO DAILY cap 06/29/20 [Rx] Insulin Aspart [NovoLOG] 5 unit SQ TIDMEALS #3 pen 06/29/20 [Rx] Insulin Glarg,Human.Rec.Analog [Lantus Solostar] 8 unit SUBCUT BEDTIME #3 pen 06/29/20 [Rx] Lancets [Glucocom Lancets] 1 each QID #100 each 06/29/20 [Rx] Losartan [Cozaar] 25 mg PO DAILY #30 tablet 06/29/20 [Rx] atorvaSTATin [Lipitor] 40 mg PO BEDTIME tablet 06/29/20 [Rx] methylPREDNISolone [Medrol Dose Pack] 84 mg PO DAILY #1 dospk 12/15/20 [Rx] Cyclobenzaprine [Flexeril] 10 mg PO BEDTIME 12/18/20 [History] bisoproloL fumarate [Bisoprolol Fumarate] 5 mg PO 12/18/20 [History] metFORMIN [Glucophage XR] 500 mg PO BIDMEALS 12/18/20 [History] Past Medical History Cardiovascular History: Reports: High Cholesterol, Hypertension Other Neuro History: dizziness and passing out Endocrine/Metabolic History: Reports: Diabetes, Type II Hematologic History: Reports: None - Infectious Disease History Infectious Disease History: Reports: Chicken Pox, Influenza - Past Surgical History Cardiovascular Surgical History: Reports: None Endocrine Surgical History: Reports: Other (See Below) Other Endocrine Surgeries/Procedures: thyroid problems Neurological Surgical History: Reports: None Social & Family History - Caffeine Use Caffeine Use: Reports: None ED ROS GENERAL - Review of Systems Review Of Systems: See Below Constitutional: Reports: No Symptoms HEENT: Reports: No Symptoms Respiratory: Reports: No Symptoms Cardiovascular: Reports: No Symptoms GI/Abdominal: Reports: No Symptoms Musculoskeletal: Reports: Neck Pain, Back Pain Neurological: Reports: Paresthesia, Difficulty Walking, Weakness, Gait Disturbance ED EXAM, GENERAL - Physical Exam Exam: See Below Exam Limited By: No Limitations General Appearance: Alert, WD/WN, Mild Distress Eye Exam: Bilateral Eye: EOMI, PERRL Head: Atraumatic, Normocephalic Respiratory/Chest: No Respiratory Distress, Lungs Clear Cardiovascular: Normal Peripheral Pulses, Regular Rate, Rhythm GI/Abdominal: Normal Bowel Sounds, Soft, Non-Tender Neurological: Alert, Abnormal Gait, Sensory/Motor Deficit (power and hand graps 2/5 b/l upper and lower extremeties) Course - Vital Signs Last Recorded V/S: Last Vital Signs Temp 36.8 C 12/18/20 18:00 Pulse 71 12/18/20 19:27 Resp 16 12/18/20 19:27 BP 149/92 H 12/18/20 19:27 Pulse Ox 100 12/18/20 19:27 - Orders/Labs/Meds Orders: Active Orders 24 hr Category Date Time Status Sodium Chloride 0.9% [Saline Flush] Med 12/18/20 17:44 Active 10 ml FLUSH ASDIRECTED PRN Saline Lock Insert [OM.PC] Routine Oth 12/18/20 17:44 Ordered Medication Orders Sodium Chloride (Sodium Chloride 0.9% 10 Ml Syringe) 10 ml FLUSH ASDIRECTED PRN PRN Reason: Keep Vein Open Labs: Laboratory Tests 12/18/20 12/18/20 Range/Units 17:44 17:45 PT 9.9 (9.0-11.5) sec INR 1.0 (1.0-3.5) SARS-CoV-2 RNA (CHARIS) Negative (NEGATIVE) Meds: Medications Generic Name Dose Route Start Last Admin Trade Name Freq PRN Reason Stop Dose Admin Sodium Chloride 10 ml 12/18/20 17:44 Sodium Chloride 0.9% 10 Ml Syringe FLUSH ASDIRECTED PRN Keep Vein Open - Re-Assessments/Exams Free Text/Narrative Re-Assessment/Exam: called neurosurgery at [facility] - spoke to Dr. Mathur - who reviewed the images and recommended to transfer to hospitalist service - and he will be consulted on the patient and decided if surgery is indicated. 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 - Discharge Information *PRESCRIPTION DRUG MONITORING PROGRAM REVIEWED*: Not Applicable *COPY OF PRESCRIPTION DRUG MONITORING REPORT IN PATIENT [facility]: Not Applicable Referrals: PCP,None [Primary Care Provider] - Forms: ED Department Discharge Sepsis Event Note (ED) - Focused Exam Vital Signs: Vital Signs Temp Pulse Resp BP Pulse Ox 12/18/20 19:27 71 16 149/92 H 100 12/18/20 18:00 36.8 C 77 20 168/86 H 98 - Problem List & Annotations (1) Weakness SNOMED Code(s): 17059810 Code(s): R53.1 - WEAKNESS Status: Acute Priority: High Current Visit: No (2) Muscle weakness (generalized) SNOMED Code(s): 22291759, 35597772 Code(s): M62.81 - MUSCLE WEAKNESS (GENERALIZED) Status: Acute Priority: Medium Current Visit: No (3) 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
== END 2020-12-18 22:24 ==
LOC: LB.ED 17:35
DX: G95.20 Unspecified cord compression (principal); G31.89 Other specified degenerative diseases of nervous system; E78.00 Pure hypercholesterolemia, unspecified; I10 Essential (primary) hypertension; E11.9 Type 2 diabetes mellitus without complications; Z79.4 Long term (current) use of insulin; Z79.899 Other long term (current) drug therapy; Z20.822 Contact with and (suspected) exposure to COVID-19
CPT/HCPCS: 36415; 85610; 99285; A0425; A0429; U0002

== ENCOUNTER 2023-04-05 18:19 | Emergency (ER) | payer BC, MEDICAID ==
[2023-04-05] MEDS ORDERED: Sodium Chloride 0.9% 10 ML Syringe FLUSH PRN (19:14)
[2023-04-05] MEDS ORDERED: traMADol 50 MG Tab ONE (19:30)
[2023-04-05] MEDS ORDERED: predniSONE 10 MG Tab ONE (19:30)
[2023-04-05] MEDS ORDERED: Cyclobenzaprine 10 MG Tab ONE (19:30)
[2023-04-05] MEDS: Ketorolac 30 MG/ML SDV IVPUSH ONE (19:47)
[2023-04-05] MEDS: methylPREDNISolone Sodium Succinate 40 MG/1 ML SDV IVPUSH ONE (19:47)
[2023-04-05] MEDS: Orphenadrine 60 MG/2 ML Inj IV ONE (20:25)
[2023-04-05] MEDS: Morphine 4 MG/ML VIAL IVPUSH ONE (21:06)
== END 2023-04-05 21:58 | disposition home or self-care (01) ==
LOC: LB.ED 18:19
DX: M50.123 Cervical disc disorder at C6-C7 level with radiculopathy (principal); I10 Essential (primary) hypertension; E78.00 Pure hypercholesterolemia, unspecified; E11.9 Type 2 diabetes mellitus without complications; Z79.84 Long term (current) use of oral hypoglycemic drugs; Z79.4 Long term (current) use of insulin; Z79.899 Other long term (current) drug therapy; Z88.8 Allergy status to other drugs, medicaments and biological substances
CPT/HCPCS: 72125; 72128; 96374; 96375; 99284; 99285-25; A9270-GY; J1885; J2270; J2360; J2920; J7512

== ENCOUNTER 2024-02-21 14:24 | Emergency (ER) | payer MEDICAID ==
[2024-02-21 15:17] LABS: APPEARANCE,URINE CLEAR (CLEAR); BILIRUBIN,URINE NEGATIVE (NEGATIVE); COLOR,URINE YELLOW; GLUCOSE,URINE NEGATIVE (NEGATIVE); KETONES,URINE NEGATIVE (NEGATIVE); LEUKOCYTE ESTERASE,URINE NEGATIVE (NEGATIVE); NITRITE,URINE NEGATIVE (NEGATIVE); OCCULT BLOOD,URINE NEGATIVE (NEGATIVE); PROTEIN,URINE NEGATIVE (NEGATIVE); UROBILINOGEN,URINE 0.2 E.U./dL (0.2-1.0)
[2024-02-21 15:34] LABS: BASOPHILS ABSOLUTE AUTO 0.01 K/uL (0.02-0.10); BASOPHILS PERCENT AUTO 0.2 % (0.0-0.5); EOSINOPHILS ABSOLUTE AUTO 0.13 K/uL (0.04-0.40); EOSINOPHILS PERCENT AUTO 2.9 % (1.0-5.0); HEMATOCRIT 42.2 % (40.0-54.0); HEMOGLOBIN 14.8 g/dL (13.0-18.0); LYMPHOCYTES PERCENT AUTO 24.4 % (20.0-40.0); MEAN CORPUSCULAR HEMOGLOBIN 29.1 pg (27.0-32.0); MEAN CORPUSCULAR HGB CONC 35.1 g/dL (31.0-35.0); MEAN CORPUSCULAR VOLUME 83 fL (76-96); MONOCYTES ABSOLUTE AUTO 0.41 K/uL (0.20-0.80); MONOCYTES PERCENT AUTO 9.1 % (3.0-10.0); NEUTROPHILS ABSOLUTE AUTO 2.85 K/uL (2.00-7.50); NEUTROPHILS PERCENT AUTO 63.4 % (45.0-70.0); PLATELET COUNT,PLT 228 K/uL (150-400); RED BLOOD CELL COUNT 5.09 M/uL (4.50-6.50); RED CELL DISTRIBUTION WIDTH 12.3 % (11.0-16.0); WHITE BLOOD CELL COUNT,WBC 4.5 K/uL (4.0-11.0)
[2024-02-21 15:44] LABS: AMPHETAMINES SCREEN, URINE NEGATIVE (NEGATIVE); BARBITURATE SCREEN,URINE NEGATIVE (NEGATIVE); BENZODIAZEPINES SCREEN,URINE NEGATIVE (NEGATIVE); METHADONE SCREEN, URINE NEGATIVE (NEGATIVE); METHAMPHETAMINES SCREEN, URINE NEGATIVE (NEGATIVE); OXYCODONE SCREEN,URINE NEGATIVE (NEGATIVE); THC SCREEN,URINE 50 NG/ML NEGATIVE (NEGATIVE)
[2024-02-21 15:45] LABS: A/G RATIO 1.4 (0.8-2.0); ALBUMIN 4.2 g/dL (3.4-5.0); ANION GAP 12.4 mmol/L (5.0-15.0); BILIRUBIN TOTAL 0.5 mg/dL (0.0-1.0); BUN/CREATININE RATIO 7.3 (6-25); CALCIUM 8.7 mg/dL (8.5-10.1); CARBON DIOXIDE,CO2 25.3 mmol/L (21.0-32.0); CREATININE 0.82 mg/dL (0.70-1.30); EST CRCL DRUG DOSING (CG) 130.12 mL/min; POTASSIUM,K 3.7 mmol/L (3.5-5.1); PROTEIN TOTAL,TP 7.3 g/dL (6.4-8.2)
[2024-02-21] MEDS: Ketorolac 30 MG/ML SDV ONE (15:45)
[2024-02-21] MEDS: Ketorolac 30 MG/ML SDV IVPUSH ONE (15:45)
[2024-02-21] MEDS: Orphenadrine 60 MG/2 ML Inj IM ONE (15:45)
[2024-02-21] MEDS: Orphenadrine 60 MG/2 ML Inj ONE (15:45)
== END 2024-02-21 16:40 | disposition home or self-care (01) ==
LOC: LB.ED 14:24
DX: M50.222 Other cervical disc displacement at C5-C6 level (principal); M62.838 Other muscle spasm; I10 Essential (primary) hypertension; E78.00 Pure hypercholesterolemia, unspecified; E11.9 Type 2 diabetes mellitus without complications; Z86.16 Personal history of COVID-19; Z79.899 Other long term (current) drug therapy; Z79.4 Long term (current) use of insulin; Z88.8 Allergy status to other drugs, medicaments and biological substances
CPT/HCPCS: 36415; 80053; 80307; 81003; 85025; 96372; 96374; 99284; J1885; J2360